=== PATIENT | female | born 1985 | race Caucasian/White ===

== ENCOUNTER → 2021-03-03 | Emergency (ER) | payer OTHER ==
[~2021-03-03] MED LIST: CEPHALEXIN500 M1 PO; EFFEXOR 37.537.5 MG PO; EFFEXOR XR75 MG PO; FLOMAX 0.4 MG0.4 MG PO; HYDROCODON-ACE1 EAC4 PO; LORTAB 5-325 M1 EACH PO; ZOFRAN ODT 4 MG4 MG SL
== END | disposition left against medical advice (07) ==
LOC: ER1 17:45
DX: Z53.21 Procedure and treatment not carried out due to patient leaving prior to being seen by health care provider (principal)

== ENCOUNTER 2021-03-06 05:49 | Emergency (ER) | payer BC ==
[~2021-03-06 05:49] MED LIST changes: -CEPHALEXIN500 M1 PO; -FLOMAX 0.4 MG0.4 MG PO; -HYDROCODON-ACE1 EAC4 PO; -ZOFRAN ODT 4 MG4 MG SL
[2021-03-06 06:38] LABS: HEMOGLOBIN 14.9 gm/dl (12.3-15.3); RED BLOOD COUNT 4.83 M/UL (4.00-5.10); WHITE BLOOD COUNT 7.3 K/UL (4.5-11.0)
[2021-03-06 07:01] LABS: BUN/CREATININE RATIO 16 (0-10)
[2021-03-06] MEDS ORDERED: ZOFRAN ODT 4 MG4 MG SL (09:39)
[2021-03-06] MEDS ORDERED: CEPHALEXIN500 M1 PO (09:39)
[2021-03-06] MEDS ORDERED: HYDROCODON-ACE1 EAC4 PO (09:39)
[2021-03-06] MEDS ORDERED: FLOMAX 0.4 MG0.4 MG PO (09:50)
== END 2021-03-06 10:04 | disposition home or self-care (01) ==
LOC: ER1 05:49
PROVIDERS: Emergency Medicine
DX: N13.2 Hydronephrosis with renal and ureteral calculous obstruction (principal); Z88.0 Allergy status to penicillin
CPT/HCPCS: 80053; 81001; 83690; 84703; 85025; 87086; 96374; 96375; 99284; J0696; J1885; J2270; J2405